=== PATIENT | female | born 1950 | race Caucasian/White ===

== ENCOUNTER → 2018-05-01 | Outpatient (CLI) | payer OTHER | END | disposition home or self-care (01) | LOC: LAB SHORT 14:00 → LAB 14:00 | DX: N39.0 Urinary tract infection, site not specified (principal) | CPT/HCPCS: 87077; 87086; 87186 ==

== ENCOUNTER → 2018-05-06 | Outpatient (CLI) | payer OTHER ==
[2018-05-06 10:49] LABS: Alanine Aminotransfer (ALT/SGP 25 U/L (12-78); Albumin, Blood 4.3 g/dL (3.4-5.0); Albumin/Globulin Ratio 1.4 (0.8-1.8); Alk Phos 71 U/L (50-136); Anion Gap 10 mmol/L (6-16); Aspartate Aminotrans (AST/SGOT 22 U/L (12-37); Bilirubin, Total 0.4 mg/dL (0.1-1.0); Blood Urea Nitrogen 11 mg/dL (8-24); Bun/Creatinine Ratio 13.6 (12.0-20.0); CO2, Blood 26 mmol/L (21-32); Calcium, Blood 8.9 mg/dL (8.5-10.1); Chloride, Blood 108 mmol/L (98-108); Creatinine, Blood 0.81 mg/dL (0.40-1.00); Glomerular Filtration Rate >60 (60-); Glucose, Blood 101 mg/dL (70-99); Potassium, Blood 3.7 mmol/L (3.5-5.5); Sodium, Blood 144 mmol/L (136-145); Total Protein, Blood 7.3 g/dL (6.4-8.2)
[2018-05-06 11:01] LABS: BASOPHILS ABSOLUTE AUTO 0.03 K/mm3 (0.00-0.23); BASOPHILS PERCENT AUTO 1 % (0-2); EOSINOPHILS ABSOLUTE AUTO 0.08 K/mm3 (0.00-0.68); EOSINOPHILS PERCENT AUTO 2 % (0-6); Hematocrit 40.3 % (33.0-51.0); Hemoglobin 13.2 g/dL (11.5-16.0); IMMATURE GRAN ABSOLUTE AUTO 0.01 K/mm3 (0.00-0.10); IMMATURE GRAN PERCENT AUTO 0 % (0-1); LYMPHOCYTES ABSOLUTE AUTO 1.32 K/mm3 (0.84-5.20); LYMPHOCYTES PERCENT AUTO 27 % (21-46); MONOCYTES ABSOLUTE AUTO 0.48 K/mm3 (0.16-1.47); MONOCYTES PERCENT AUTO 10 % (4-13); Mean Corpuscular HGB Conc 32.8 g/dL (31.5-36.5); Mean Corpuscular Volume 92 fL (80-100); Mean Platelet Volume 10.2 fL (9.1-12.4); NEUTROPHILS ABSOLUTE AUTO 2.95 K/mm3 (1.96-9.15); NEUTROPHILS PERCENT AUTO 61 % (41-73); Platelet Count 247 K/mm3 (150-400); RDW Coefficient Variation 13.3 % (11.7-14.2); RDW Standard Deviation 45.8 fL (35.1-46.3); White Blood Cell Count 4.87 K/mm3 (4.00-11.30)
[2018-05-06 11:05] LABS: Free Thyroxine 1.46 ng/dL (0.70-1.60)
== END ==
LOC: LAB 10:17 → LAB SHORT 10:17
DX: N39.0 Urinary tract infection, site not specified (principal); L40.4 Guttate psoriasis; M54.5 Low back pain; R53.83 Other fatigue; Z68.24 Body mass index [BMI] 24.0-24.9, adult
CPT/HCPCS: 80053; 84439; 84443; 85025; 87086

== ENCOUNTER → 2022-08-28 | Outpatient (CLI) | payer OTHER | LOC: LAB SHORT 08:25 → LAB 08:25 | DX: R30.0 Dysuria (principal) | CPT/HCPCS: 87077; 87086; 87186 ==

== ENCOUNTER 2023-12-10 07:25 | Day surgery (SDC) | payer OTHER ==
[~2023-12-10] VITALS: Ht 152.4 cm; Wt 51.9 kg
[2023-12-10] MEDS ORDERED: SYNTHROID137 MCG (07:44)
[2023-12-10] MEDS ORDERED: RIZATRIPTAN10 M3 PO (07:44)
[2023-12-10] MEDS ORDERED: PROBENECID-COL1 EACH PO (07:45)
--- NOTE | 2023-12-10 07:46 | NUR ---
12/10/23 0746 Renata العراقي AT 0741 PLEDGET AT [id number]
[2023-12-10 08:50] VITALS: BP 146/81
== END 2023-12-10 09:08 | disposition home or self-care (01) ==
LOC: ORSCSDS 07:25
PROVIDERS: Student in an Organized Health Care Education/Training Program
PROC: 08RJ3JZ Replacement of Right Lens with Synthetic Substitute, Percutaneous Approach (ICD-10-PCS; principal; 2023-12-10 08:30)
DX: H25.13 Age-related nuclear cataract, bilateral (principal); I25.2 Old myocardial infarction; F17.210 Nicotine dependence, cigarettes, uncomplicated; Z79.82 Long term (current) use of aspirin; Z79.899 Other long term (current) drug therapy
CPT/HCPCS: J2250; J3010; J7040; V2632

== ENCOUNTER 2023-12-24 10:16 | Day surgery (SDC) | payer OTHER ==
[~2023-12-24] VITALS: Ht 152.4 cm; Wt 52.2 kg
[~2023-12-24 10:16] MED LIST: Aspir 8181 MG; Balanced Salt Epinephrine Irrigation Solution 500 mL IR SCH; COLCHICINE PO; LEVOTHYROXINE137 M11 PO; Lidocaine HCl/Pf 1% 5 ML VIAL XX SCH; Moxifloxacin HCL 0.5 MG/0.1 ML 0.4MLSYR LEFTEYE SCH; NS 500 ML IV ONE; PHENYLEPHRINE\\TROPICAMIDE\\TETRACAINE OPHTHALMIC DILATING SOLN LEFTEYE PRN; PROBENECID-COL1 EACH PO; Povidone-Iodine 450 DROP/30 ML Solution LEFTEYE SCH; Povidone-Iodine 450 DROP/30 ML Solution ONE; RIZATRIPTAN10 M3 PO
[2023-12-24] MEDS ORDERED: GABA100 (10:39)
[2023-12-24] MEDS ORDERED: NS 500 ML IV ONE (10:42)
[2023-12-24] MEDS ORDERED: Midazolam HCl 1MG / ML 2ML Vial ONE (11:38)
[2023-12-24] MEDS ORDERED: Tetracaine HCl 0.5% Opth Soln 15 ml XX ONE (11:43)
[2023-12-24 12:27] VITALS: BP 146/82
== END 2023-12-24 12:22 | disposition home or self-care (01) ==
LOC: ORSCSDS 10:16
PROVIDERS: Student in an Organized Health Care Education/Training Program
PROC: 08RK3JZ Replacement of Left Lens with Synthetic Substitute, Percutaneous Approach (ICD-10-PCS; principal; 2023-12-24 11:30)
DX: H25.12 Age-related nuclear cataract, left eye (principal); E07.9 Disorder of thyroid, unspecified; M10.9 Gout, unspecified; F17.210 Nicotine dependence, cigarettes, uncomplicated
CPT/HCPCS: J2250; J7040; V2632

== ENCOUNTER 2025-03-08 06:39 | Emergency (ER) | payer OTHER ==
[~2025-03-08] VITALS: Ht 157.5 cm; Wt 72.6 kg
[~2025-03-08 06:39] MED LIST changes: -Balanced Salt Epinephrine Irrigation Solution 500 mL IR SCH; +GABA100; -Lidocaine HCl/Pf 1% 5 ML VIAL XX SCH; -Moxifloxacin HCL 0.5 MG/0.1 ML 0.4MLSYR LEFTEYE SCH; -NS 500 ML IV ONE; -PHENYLEPHRINE\\TROPICAMIDE\\TETRACAINE OPHTHALMIC DILATING SOLN LEFTEYE PRN; -Povidone-Iodine 450 DROP/30 ML Solution LEFTEYE SCH; -Povidone-Iodine 450 DROP/30 ML Solution ONE
[2025-03-08] MEDS ORDERED: LORazepam 2 MG/ML 1ML Injection IV ONE (06:50)
[2025-03-08] MEDS ORDERED: NS 1,000 ML IV SCH ×2 (06:50→08:45)
[2025-03-08 07:06] LABS: BASOPHILS ABSOLUTE AUTO 0.06 K/mm3 (0.00-0.23); BASOPHILS PERCENT AUTO 1 % (0-2); EOSINOPHILS ABSOLUTE AUTO 0.18 K/mm3 (0.00-0.68); EOSINOPHILS PERCENT AUTO 2 % (0-6); IMMATURE GRAN ABSOLUTE AUTO 0.03 K/mm3 (0.00-0.10); IMMATURE GRAN PERCENT AUTO 0 % (0-1); LYMPHOCYTES ABSOLUTE AUTO 2.92 K/mm3 (0.84-5.20); LYMPHOCYTES PERCENT AUTO 32 % (21-46); MONOCYTES ABSOLUTE AUTO 0.63 K/mm3 (0.16-1.47); MONOCYTES PERCENT AUTO 7 % (4-13); Mean Corpuscular HGB 32.3 pg (26.0-34.0); Mean Corpuscular HGB Conc 34.1 g/dL (31.5-36.5); Mean Corpuscular Volume 95 fL (80-100); Mean Platelet Volume 9.2 fL (9.1-12.4); NEUTROPHILS ABSOLUTE AUTO 5.42 K/mm3 (1.96-9.15); NEUTROPHILS PERCENT AUTO 59 % (41-73); Platelet Count 266 K/mm3 (150-400); RDW Coefficient Variation 14.7 % (11.7-14.2); Red Blood Cell Count 4.33 M/mm3 (3.80-5.20); White Blood Cell Count 9.24 K/mm3 (4.00-11.30)
[2025-03-08] MEDS ORDERED: Metoclopramide HCl 5MG / ML 2ML Vial IV ONE (07:15)
[2025-03-08 07:26] LABS: Alanine Aminotransfer (ALT/SGP 26 U/L (12-78); Albumin, Blood 4.4 g/dL (3.4-5.0); Albumin/Globulin Ratio 1.5 (0.8-1.8); Alk Phos 98 U/L (50-136); Anion Gap 14 mmol/L (3-11); Aspartate Aminotrans (AST/SGOT 23 U/L (12-37); Bilirubin, Total 0.6 mg/dL (0.1-1.0); Blood Urea Nitrogen 12 mg/dL (8-24); Bun/Creatinine Ratio 14.4 (12.0-20.0); CO2, Blood 22 mmol/L (21-32); Calcium, Blood 9.3 mg/dL (8.5-10.1); Chloride, Blood 107 mmol/L (98-108); Creatinine, Blood 0.83 mg/dL (0.40-1.00); Glomerular Filtration Rate 74 (60-); Glucose, Blood 212 mg/dL (70-99); Potassium, Blood 2.9 mmol/L (3.5-5.5); Sodium, Blood 140 mmol/L (136-145); Total Protein, Blood 7.4 g/dL (6.4-8.2)
[2025-03-08 07:27] LABS: Ethanol (Alcohol), Blood, Med <3 mg/dL
[2025-03-08 07:35] LABS: Free Thyroxine 1.27 ng/dL (0.70-1.60)
[2025-03-08 07:36] LABS: Thyroid Stimulating Hormone 10.9 uIU/mL (0.360-4.800)
[2025-03-08] MEDS ORDERED: Mag Sulfate 1 GM/D5% 100ML 100 ML IV ONE (07:55)
[2025-03-08] MEDS ORDERED: Potassium Chl 20MEQ/Water100ML 100 ML IV ONE (07:55)
[2025-03-08 08:17] LABS: CORONAVIRUS COVID-19 AG Negative (NEGATIVE); INFLUENZA A AG Negative (NEGATIVE); INFLUENZA B AG Negative (NEGATIVE)
[2025-03-08 09:54] LABS: U Amphetamine Screen Not Detected; U Barbituate Screen Not Detected; U Benzodiazapine Screen Not Detected; U Cocaine Screen Not Detected; U Methadone Screen Not Detected; U Methamphetamine Screen Not Detected; U Opiates Screen Not Detected
[2025-03-08 09:55] LABS: U Buprenorphine Screen Not Detected; U Cannabinoids Screen DETECTED; U Oxycodone Screen Not Detected; U Phencyclidine Screen Not Detected
[2025-03-08] MEDS ORDERED: LOPE2C PO (10:56)
[2025-03-08] MEDS ORDERED: POTA10T PO (10:56)
[2025-03-08] MEDS ORDERED: ONDA4ODT MM (10:56)
[2025-03-08 11:00] VITALS: BP 157/83
== END 2025-03-08 11:27 | disposition home or self-care (01) ==
LOC: ER 06:39
PROVIDERS: Emergency Medicine
DX: R07.89 Other chest pain (principal); E87.6 Hypokalemia; R11.2 Nausea with vomiting, unspecified; R19.7 Diarrhea, unspecified; R61 Generalized hyperhidrosis; E03.9 Hypothyroidism, unspecified; Z88.0 Allergy status to penicillin; Z88.2 Allergy status to sulfonamides; Z88.6 Allergy status to analgesic agent; Z88.5 Allergy status to narcotic agent; Z88.1 Allergy status to other antibiotic agents; Z79.890 Hormone replacement therapy; Z79.899 Other long term (current) drug therapy
CPT/HCPCS: 80053; 80320; 83690; 84439; 84443; 84484; 85025; 87428-QW; 93005; 93010; 96361; 96365; 96366; 96367; 96375; 99284-25; J2060; J2765; J3475; J3480; J7030

== ENCOUNTER 2025-05-20 21:44 | Emergency (ER) | payer OTHER ==
[~2025-05-20] VITALS: Ht 157.5 cm; Wt 55.3 kg
[~2025-05-20 21:44] MED LIST changes: +CEFDINIR300 M4 PO; +HYDROCODONE-AC1 EA19 PO; +LOPE2C PO; +Norco 5-325 Ta1 EACH PO; +ONDA4ODT MM; +POTA10T PO; +PRED5; +RIZATRIPTAN10 MG SL; +VISBIOME 112.51 EACH PO
[2025-05-20 22:44] VITALS: BP 184/81
[2025-05-20 23:10] LABS: BASOPHILS ABSOLUTE AUTO 0.07 K/mm3 (0.00-0.23); BASOPHILS PERCENT AUTO 1 % (0-2); EOSINOPHILS ABSOLUTE AUTO 0.13 K/mm3 (0.00-0.68); EOSINOPHILS PERCENT AUTO 2 % (0-6); Hematocrit 28.3 % (33.0-51.0); Hemoglobin 9.2 g/dL (11.5-16.0); IMMATURE GRAN ABSOLUTE AUTO 0.02 K/mm3 (0.00-0.10); IMMATURE GRAN PERCENT AUTO 0 % (0-1); LYMPHOCYTES ABSOLUTE AUTO 1.63 K/mm3 (0.84-5.20); LYMPHOCYTES PERCENT AUTO 27 % (21-46); MONOCYTES ABSOLUTE AUTO 0.81 K/mm3 (0.16-1.47); MONOCYTES PERCENT AUTO 14 % (4-13); Mean Corpuscular HGB Conc 32.5 g/dL (31.5-36.5); Mean Corpuscular Volume 97 fL (80-100); NEUTROPHILS ABSOLUTE AUTO 3.32 K/mm3 (1.96-9.15); NEUTROPHILS PERCENT AUTO 56 % (41-73); NRBC ABSOLUTE 0.00 K/mm3 (0.00-0.02); NRBC Auto 0.0 /100 WBC (0.0-0.2); Platelet Count 198 K/mm3 (150-400); RDW Coefficient Variation 12.7 % (11.7-14.2); RDW Standard Deviation 44.1 fL (35.1-46.3)
[2025-05-20 23:30] LABS: Alanine Aminotransfer (ALT/SGP 30.0 U/L (12-78); Albumin, Blood 3.6 g/dL (3.4-5.0); Albumin/Globulin Ratio 1.2 (0.8-1.8); Anion Gap 5.0 mmol/L (3-11); Aspartate Aminotrans (AST/SGOT 17.0 U/L (12-37); Bilirubin, Total 0.2 mg/dL (0.1-1.0); Blood Urea Nitrogen 20.0 mg/dL (8-24); CO2, Blood 29.0 mmol/L (21-32); Calcium, Blood 9.2 mg/dL (8.5-10.1); Chloride, Blood 108.0 mmol/L (98-108); Creatinine, Blood 0.92 mg/dL (0.40-1.00); Globulin, Blood 2.9 g/dL (2.2-4.0); Glucose, Blood 127.0 mg/dL (70-99); Potassium, Blood 3.4 mmol/L (3.5-5.5); Sodium, Blood 139.0 mmol/L (136-145); Total Protein, Blood 6.5 g/dL (6.4-8.2)
[2025-05-20] MEDS ORDERED: CLIN150 PO (23:47)
== END 2025-05-20 23:50 | disposition home or self-care (01) ==
LOC: ER 21:44
PROVIDERS: Physician Assistant
DX: L03.011 Cellulitis of right finger (principal); Z88.0 Allergy status to penicillin; Z88.2 Allergy status to sulfonamides; Z79.899 Other long term (current) drug therapy; Z79.890 Hormone replacement therapy
CPT/HCPCS: 73130; 80053; 85025; 99283-25; A9270

== ENCOUNTER 2025-05-28 15:32 | Day surgery (SDC) | payer OTHER ==
[~2025-05-28 15:32] MED LIST changes: +CLIN150 PO
[2025-05-28 16:10] VITALS: BP 149/97
[2025-05-28 17:24] LABS: BASOPHILS ABSOLUTE AUTO 0.03 K/mm3 (0.00-0.23); BASOPHILS PERCENT AUTO 1 % (0-2); EOSINOPHILS ABSOLUTE AUTO 0.09 K/mm3 (0.00-0.68); EOSINOPHILS PERCENT AUTO 2 % (0-6); Hematocrit 29.4 % (33.0-51.0); Hemoglobin 9.9 g/dL (11.5-16.0); IMMATURE GRAN ABSOLUTE AUTO 0.00 K/mm3 (0.00-0.10); IMMATURE GRAN PERCENT AUTO 0 % (0-1); LYMPHOCYTES ABSOLUTE AUTO 1.60 K/mm3 (0.84-5.20); LYMPHOCYTES PERCENT AUTO 40 % (21-46); MONOCYTES ABSOLUTE AUTO 0.49 K/mm3 (0.16-1.47); MONOCYTES PERCENT AUTO 12 % (4-13); Mean Corpuscular HGB Conc 33.7 g/dL (31.5-36.5); Mean Corpuscular Volume 92 fL (80-100); NEUTROPHILS ABSOLUTE AUTO 1.79 K/mm3 (1.96-9.15); NEUTROPHILS PERCENT AUTO 45 % (41-73); NRBC ABSOLUTE 0.00 K/mm3 (0.00-0.02); NRBC Auto 0.0 /100 WBC (0.0-0.2); Platelet Count 306 K/mm3 (150-400); RDW Coefficient Variation 13.2 % (11.7-14.2); RDW Standard Deviation 43.8 fL (35.1-46.3)
[2025-05-28] MEDS ORDERED: DAPTOMYCIN500 M3 IV (17:51)
[2025-05-28 17:54] LABS: C-REACTIVE PROTEIN, EXT RANGE <0.290 mg/dL (0.000-0.300)
[2025-05-28 17:56] LABS: Alanine Aminotransfer (ALT/SGP 25 U/L (12-78); Albumin, Blood 3.6 g/dL (3.4-5.0); Albumin/Globulin Ratio 1.3 (0.8-1.8); Anion Gap 10 mmol/L (3-11); Aspartate Aminotrans (AST/SGOT 18 U/L (12-37); Bilirubin, Total 0.5 mg/dL (0.1-1.0); Blood Urea Nitrogen 15 mg/dL (8-24); CO2, Blood 25 mmol/L (21-32); Calcium, Blood 8.9 mg/dL (8.5-10.1); Chloride, Blood 107 mmol/L (98-108); Creatinine, Blood 1.04 mg/dL (0.40-1.00); Globulin, Blood 2.8 g/dL (2.2-4.0); Glucose, Blood 102 mg/dL (70-99); Potassium, Blood 3.5 mmol/L (3.5-5.5); Sodium, Blood 138 mmol/L (136-145); Total Protein, Blood 6.4 g/dL (6.4-8.2)
--- NOTE | 2025-05-28 18:03 | NUR ---
Lab results from today's draw faxed to Dr. Spicer's office.
== END 2025-05-28 17:50 | disposition home or self-care (01) ==
LOC: ATC 15:32
PROVIDERS: Internal Medicine Infectious Disease
DX: M00.041 Staphylococcal arthritis, right hand (principal); B95.62 Methicillin resistant Staphylococcus aureus infection as the cause of diseases classified elsewhere; D62 Acute posthemorrhagic anemia; Z88.0 Allergy status to penicillin; Z88.1 Allergy status to other antibiotic agents; Z88.2 Allergy status to sulfonamides
CPT/HCPCS: 36415; 36569; 80053; 82550; 85025; 85045; 85060; 86140; 96365; C1751; J0878

== ENCOUNTER 2025-05-29 01:21 | Day surgery (SDC) | payer OTHER ==
[~2025-05-29 01:21] MED LIST changes: +DAPTOMYCIN500 M3 IV
[2025-05-29 16:09] VITALS: BP 108/65
== END 2025-05-29 16:29 | disposition home or self-care (01) ==
LOC: ATC 01:21
DX: M00.041 Staphylococcal arthritis, right hand (principal); B95.62 Methicillin resistant Staphylococcus aureus infection as the cause of diseases classified elsewhere; M10.9 Gout, unspecified; Z79.890 Hormone replacement therapy; Z79.899 Other long term (current) drug therapy; Z88.0 Allergy status to penicillin; Z88.2 Allergy status to sulfonamides
CPT/HCPCS: 96365; J0878

== ENCOUNTER 2025-05-30 00:51 | Day surgery (SDC) | payer OTHER ==
[2025-05-30 13:50] VITALS: BP 144/78
== END 2025-05-30 14:15 | disposition home or self-care (01) ==
LOC: ATC 00:51
DX: M00.041 Staphylococcal arthritis, right hand (principal); B95.62 Methicillin resistant Staphylococcus aureus infection as the cause of diseases classified elsewhere; M10.9 Gout, unspecified; Z79.890 Hormone replacement therapy; Z79.899 Other long term (current) drug therapy; Z88.0 Allergy status to penicillin; Z88.2 Allergy status to sulfonamides
CPT/HCPCS: 96365; J0878

== ENCOUNTER 2025-05-31 00:44 | Day surgery (SDC) | payer OTHER ==
[2025-05-31 14:17] VITALS: BP 156/92
== END 2025-05-31 14:45 | disposition home or self-care (01) ==
LOC: ATC 00:44
DX: M00.041 Staphylococcal arthritis, right hand (principal); B95.62 Methicillin resistant Staphylococcus aureus infection as the cause of diseases classified elsewhere; M10.9 Gout, unspecified; Z79.890 Hormone replacement therapy; Z79.899 Other long term (current) drug therapy
CPT/HCPCS: 96365; J0878

== ENCOUNTER 2025-06-01 01:03 | Day surgery (SDC) | payer OTHER ==
[2025-06-01 14:28] VITALS: BP 118/68
== END 2025-06-01 14:47 | disposition home or self-care (01) ==
LOC: ATC 01:03
DX: M00.041 Staphylococcal arthritis, right hand (principal); B95.62 Methicillin resistant Staphylococcus aureus infection as the cause of diseases classified elsewhere; M10.9 Gout, unspecified; Z79.890 Hormone replacement therapy; Z79.899 Other long term (current) drug therapy; Z88.0 Allergy status to penicillin; Z88.2 Allergy status to sulfonamides
CPT/HCPCS: 96365; J0878

== ENCOUNTER 2025-06-02 01:22 | Day surgery (SDC) | payer OTHER ==
[2025-06-02 14:27] VITALS: BP 138/70
== END 2025-06-02 14:47 | disposition home or self-care (01) ==
LOC: ATC 01:22
DX: M00.041 Staphylococcal arthritis, right hand (principal); B95.62 Methicillin resistant Staphylococcus aureus infection as the cause of diseases classified elsewhere; M10.9 Gout, unspecified; Z79.890 Hormone replacement therapy; Z79.899 Other long term (current) drug therapy; Z88.0 Allergy status to penicillin; Z88.2 Allergy status to sulfonamides
CPT/HCPCS: 96365; J0878

== ENCOUNTER 2025-06-03 03:00 | Day surgery (SDC) | payer OTHER ==
[2025-06-03 14:22] VITALS: BP 104/55
== END 2025-06-03 14:55 | disposition home or self-care (01) ==
LOC: ATC 03:00
DX: M00.041 Staphylococcal arthritis, right hand (principal); B95.62 Methicillin resistant Staphylococcus aureus infection as the cause of diseases classified elsewhere; M10.9 Gout, unspecified; Z79.890 Hormone replacement therapy; Z79.899 Other long term (current) drug therapy; Z88.0 Allergy status to penicillin; Z88.2 Allergy status to sulfonamides
CPT/HCPCS: 96365; J0878

== ENCOUNTER 2025-06-04 03:00 | Day surgery (SDC) | payer OTHER ==
[2025-06-04 14:31] VITALS: BP 121/104
[2025-06-04 14:54] LABS: Hematocrit 31.4 % (33.0-51.0); Hemoglobin 10.3 g/dL (11.5-16.0); Mean Corpuscular HGB Conc 32.8 g/dL (31.5-36.5); Mean Corpuscular Volume 95 fL (80-100); NRBC ABSOLUTE 0.00 K/mm3 (0.00-0.02); NRBC Auto 0.0 /100 WBC (0.0-0.2); Platelet Count 230 K/mm3 (150-400); RDW Coefficient Variation 14.0 % (11.7-14.2); RDW Standard Deviation 48.7 fL (35.1-46.3)
[2025-06-04 15:17] LABS: BASOPHILS ABSOLUTE MAN 0.12 K/mm3 (0.00-0.23); BASOPHILS PERCENT MAN 3 % (0-2); EOSINOPHILS ABSOLUTE MAN 0.16 K/mm3 (0.00-0.68); EOSINOPHILS PERCENT MAN 4 % (0-6); LYMPHOCYTES ABSOLUTE MAN 1.43 K/mm3 (0.84-5.20); LYMPHOCYTES PERCENT MAN 35 % (21-46); MONOCYTES ABSOLUTE MAN 0.32 K/mm3 (0.16-1.47); MONOCYTES PERCENT MAN 8 % (4-13); NEUTROPHILS ABSOLUTE MAN 2.05 K/mm3 (1.96-9.15); SEG NEUTROPHILS PERCENT MAN 50 % (41-73)
[2025-06-04 15:52] LABS: C-REACTIVE PROTEIN, EXT RANGE <0.290 mg/dL (0.000-0.300)
[2025-06-04 15:59] LABS: Alanine Aminotransfer (ALT/SGP 21 U/L (12-78); Albumin, Blood 3.5 g/dL (3.4-5.0); Albumin/Globulin Ratio 1.1 (0.8-1.8); Anion Gap 8 mmol/L (3-11); Aspartate Aminotrans (AST/SGOT 18 U/L (12-37); Bilirubin, Total 0.3 mg/dL (0.1-1.0); Blood Urea Nitrogen 14 mg/dL (8-24); CO2, Blood 26 mmol/L (21-32); Calcium, Blood 8.8 mg/dL (8.5-10.1); Chloride, Blood 108 mmol/L (98-108); Creatinine, Blood 0.88 mg/dL (0.40-1.00); Globulin, Blood 3.3 g/dL (2.2-4.0); Glucose, Blood 110 mg/dL (70-99); Potassium, Blood 3.6 mmol/L (3.5-5.5); Sodium, Blood 138 mmol/L (136-145); Total Protein, Blood 6.8 g/dL (6.4-8.2)
== END 2025-06-04 14:45 | disposition home or self-care (01) ==
LOC: ATC 03:00
PROVIDERS: Internal Medicine Infectious Disease
DX: A49.02 Methicillin resistant Staphylococcus aureus infection, unspecified site (principal); M00.9 Pyogenic arthritis, unspecified
CPT/HCPCS: 80053; 82550; 85025; 86140; 96365; J0878

== ENCOUNTER 2025-06-05 01:03 | Day surgery (SDC) | payer OTHER ==
[2025-06-05 14:25] VITALS: BP 107/72
== END 2025-06-05 14:52 | disposition home or self-care (01) ==
LOC: ATC 01:03
DX: M00.041 Staphylococcal arthritis, right hand (principal); B95.62 Methicillin resistant Staphylococcus aureus infection as the cause of diseases classified elsewhere; M10.9 Gout, unspecified; M06.9 Rheumatoid arthritis, unspecified; Z79.890 Hormone replacement therapy; Z79.899 Other long term (current) drug therapy; Z88.0 Allergy status to penicillin; Z88.1 Allergy status to other antibiotic agents; Z88.2 Allergy status to sulfonamides
CPT/HCPCS: 96365; J0878

== ENCOUNTER 2025-06-06 01:05 | Day surgery (SDC) | payer OTHER ==
[2025-06-06 13:35] VITALS: BP 117/70
== END 2025-06-06 14:32 | disposition home or self-care (01) ==
LOC: ATC 01:05
DX: M00.041 Staphylococcal arthritis, right hand (principal); B95.62 Methicillin resistant Staphylococcus aureus infection as the cause of diseases classified elsewhere; M10.9 Gout, unspecified; M06.9 Rheumatoid arthritis, unspecified; Z79.890 Hormone replacement therapy; Z79.899 Other long term (current) drug therapy; Z88.0 Allergy status to penicillin; Z88.1 Allergy status to other antibiotic agents; Z88.2 Allergy status to sulfonamides
CPT/HCPCS: 96365; J0878

== ENCOUNTER 2025-06-07 00:16 | Day surgery (SDC) | payer OTHER ==
[2025-06-07 14:42] VITALS: BP 120/73
== END 2025-06-07 15:08 | disposition home or self-care (01) ==
LOC: ATC 00:16
DX: M00.041 Staphylococcal arthritis, right hand (principal); B95.62 Methicillin resistant Staphylococcus aureus infection as the cause of diseases classified elsewhere
CPT/HCPCS: 96365; J0878

== ENCOUNTER 2025-06-08 01:28 | Day surgery (SDC) | payer OTHER ==
[2025-06-08 14:41] VITALS: BP 141/71
== END 2025-06-08 15:03 | disposition home or self-care (01) ==
LOC: ATC 01:28
DX: M00.041 Staphylococcal arthritis, right hand (principal); B95.62 Methicillin resistant Staphylococcus aureus infection as the cause of diseases classified elsewhere
CPT/HCPCS: 96365; J0878

== ENCOUNTER 2025-06-09 04:12 | Day surgery (SDC) | payer OTHER ==
[2025-06-09 14:36] VITALS: BP 146/83
== END 2025-06-09 14:58 | disposition home or self-care (01) ==
LOC: ATC 04:12
DX: M00.041 Staphylococcal arthritis, right hand (principal); B95.62 Methicillin resistant Staphylococcus aureus infection as the cause of diseases classified elsewhere; Z79.899 Other long term (current) drug therapy; Z88.0 Allergy status to penicillin; Z88.2 Allergy status to sulfonamides
CPT/HCPCS: 96365; J0878

== ENCOUNTER 2025-06-10 04:21 | Day surgery (SDC) | payer OTHER ==
[2025-06-10 14:31] VITALS: BP 122/75
== END 2025-06-10 14:55 | disposition home or self-care (01) ==
LOC: ATC 04:21
DX: A49.02 Methicillin resistant Staphylococcus aureus infection, unspecified site (principal); M00.9 Pyogenic arthritis, unspecified
CPT/HCPCS: 96365; J0878

== ENCOUNTER 2025-06-11 03:47 | Day surgery (SDC) | payer OTHER ==
[2025-06-11 14:57] LABS: BASOPHILS ABSOLUTE AUTO 0.06 K/mm3 (0.00-0.23); BASOPHILS PERCENT AUTO 1 % (0-2); EOSINOPHILS ABSOLUTE AUTO 0.10 K/mm3 (0.00-0.68); EOSINOPHILS PERCENT AUTO 2 % (0-6); Hematocrit 33.1 % (33.0-51.0); Hemoglobin 10.8 g/dL (11.5-16.0); IMMATURE GRAN ABSOLUTE AUTO 0.00 K/mm3 (0.00-0.10); IMMATURE GRAN PERCENT AUTO 0 % (0-1); LYMPHOCYTES ABSOLUTE AUTO 1.32 K/mm3 (0.84-5.20); LYMPHOCYTES PERCENT AUTO 29 % (21-46); MONOCYTES ABSOLUTE AUTO 0.52 K/mm3 (0.16-1.47); MONOCYTES PERCENT AUTO 12 % (4-13); Mean Corpuscular HGB Conc 32.6 g/dL (31.5-36.5); Mean Corpuscular Volume 94 fL (80-100); NEUTROPHILS ABSOLUTE AUTO 2.52 K/mm3 (1.96-9.15); NEUTROPHILS PERCENT AUTO 56 % (41-73); NRBC ABSOLUTE 0.00 K/mm3 (0.00-0.02); NRBC Auto 0.0 /100 WBC (0.0-0.2); Platelet Count 249 K/mm3 (150-400); RDW Coefficient Variation 13.9 % (11.7-14.2); RDW Standard Deviation 47.8 fL (35.1-46.3)
[2025-06-11 15:24] LABS: Alanine Aminotransfer (ALT/SGP 22 U/L (12-78); Albumin, Blood 3.9 g/dL (3.4-5.0); Albumin/Globulin Ratio 1.2 (0.8-1.8); Anion Gap 9 mmol/L (3-11); Aspartate Aminotrans (AST/SGOT 19 U/L (12-37); Bilirubin, Total 0.3 mg/dL (0.1-1.0); Blood Urea Nitrogen 12 mg/dL (8-24); C-REACTIVE PROTEIN, EXT RANGE <0.290 mg/dL (0.000-0.300); CO2, Blood 24 mmol/L (21-32); Calcium, Blood 8.8 mg/dL (8.5-10.1); Chloride, Blood 109 mmol/L (98-108); Creatinine, Blood 0.88 mg/dL (0.40-1.00); Globulin, Blood 3.2 g/dL (2.2-4.0); Glucose, Blood 95 mg/dL (70-99); Potassium, Blood 3.4 mmol/L (3.5-5.5); Sodium, Blood 139 mmol/L (136-145); Total Protein, Blood 7.1 g/dL (6.4-8.2)
== END 2025-06-11 14:52 | disposition home or self-care (01) ==
LOC: ATC 03:47
PROVIDERS: Internal Medicine Infectious Disease
DX: M00.9 Pyogenic arthritis, unspecified (principal); A49.02 Methicillin resistant Staphylococcus aureus infection, unspecified site
CPT/HCPCS: 80053; 82550; 85025; 86140; 96365; J0878

== ENCOUNTER 2025-06-12 01:17 | Day surgery (SDC) | payer OTHER ==
[2025-06-12 14:24] VITALS: BP 123/74
== END 2025-06-12 14:46 | disposition home or self-care (01) ==
LOC: ATC 01:17
DX: M00.9 Pyogenic arthritis, unspecified (principal); A49.02 Methicillin resistant Staphylococcus aureus infection, unspecified site; Z88.0 Allergy status to penicillin; Z88.2 Allergy status to sulfonamides
CPT/HCPCS: 96365; J0878

== ENCOUNTER 2025-06-13 03:16 | Day surgery (SDC) | payer OTHER ==
[2025-06-13 14:50] VITALS: BP 125/72
== END 2025-06-13 14:56 | disposition home or self-care (01) ==
LOC: ATC 03:16
DX: M00.9 Pyogenic arthritis, unspecified (principal); A49.02 Methicillin resistant Staphylococcus aureus infection, unspecified site
CPT/HCPCS: 96365; J0878

== ENCOUNTER 2025-06-14 00:23 | Day surgery (SDC) | payer OTHER ==
[2025-06-14 14:27] VITALS: BP 157/105
== END 2025-06-14 14:50 | disposition home or self-care (01) ==
LOC: ATC 00:23
DX: M00.041 Staphylococcal arthritis, right hand (principal); B95.62 Methicillin resistant Staphylococcus aureus infection as the cause of diseases classified elsewhere; M10.9 Gout, unspecified; Z79.890 Hormone replacement therapy; Z79.899 Other long term (current) drug therapy; Z88.0 Allergy status to penicillin; Z88.2 Allergy status to sulfonamides
CPT/HCPCS: 96365; J0878

== ENCOUNTER 2025-06-15 14:06 | Day surgery (SDC) | payer OTHER ==
[2025-06-15 14:16] VITALS: BP 143/87
== END 2025-06-15 14:38 | disposition home or self-care (01) ==
LOC: ATC 14:06
DX: M00.9 Pyogenic arthritis, unspecified (principal); A49.02 Methicillin resistant Staphylococcus aureus infection, unspecified site
CPT/HCPCS: 96365; J0878

== ENCOUNTER 2025-06-16 08:14 | Day surgery (SDC) | payer OTHER ==
[2025-06-16 14:53] VITALS: BP 142/70
== END 2025-06-16 15:00 | disposition home or self-care (01) ==
LOC: ATC 08:14
DX: M00.9 Pyogenic arthritis, unspecified (principal); A49.02 Methicillin resistant Staphylococcus aureus infection, unspecified site
CPT/HCPCS: 96365; J0878

== ENCOUNTER 2025-06-17 14:08 | Day surgery (SDC) | payer OTHER ==
[2025-06-17 14:29] VITALS: BP 138/68
== END 2025-06-17 14:52 | disposition home or self-care (01) ==
LOC: ATC 14:08
DX: M00.041 Staphylococcal arthritis, right hand (principal); B95.62 Methicillin resistant Staphylococcus aureus infection as the cause of diseases classified elsewhere; M10.9 Gout, unspecified; M06.9 Rheumatoid arthritis, unspecified; Z79.890 Hormone replacement therapy; Z79.899 Other long term (current) drug therapy
CPT/HCPCS: 96365; J0878

== ENCOUNTER 2025-06-18 01:14 | Day surgery (SDC) | payer OTHER ==
[2025-06-18 14:39] VITALS: BP 136/75
[2025-06-18 15:12] LABS: BASOPHILS ABSOLUTE AUTO 0.05 K/mm3 (0.00-0.23); BASOPHILS PERCENT AUTO 1 % (0-2); EOSINOPHILS ABSOLUTE AUTO 0.29 K/mm3 (0.00-0.68); EOSINOPHILS PERCENT AUTO 5 % (0-6); Hematocrit 34.6 % (33.0-51.0); Hemoglobin 11.2 g/dL (11.5-16.0); IMMATURE GRAN ABSOLUTE AUTO 0.01 K/mm3 (0.00-0.10); IMMATURE GRAN PERCENT AUTO 0 % (0-1); LYMPHOCYTES ABSOLUTE AUTO 1.42 K/mm3 (0.84-5.20); LYMPHOCYTES PERCENT AUTO 27 % (21-46); MONOCYTES ABSOLUTE AUTO 0.55 K/mm3 (0.16-1.47); MONOCYTES PERCENT AUTO 10 % (4-13); Mean Corpuscular HGB Conc 32.4 g/dL (31.5-36.5); Mean Corpuscular Volume 93 fL (80-100); NEUTROPHILS ABSOLUTE AUTO 3.04 K/mm3 (1.96-9.15); NEUTROPHILS PERCENT AUTO 57 % (41-73); NRBC ABSOLUTE 0.00 K/mm3 (0.00-0.02); NRBC Auto 0.0 /100 WBC (0.0-0.2); Platelet Count 228 K/mm3 (150-400); RDW Coefficient Variation 13.5 % (11.7-14.2); RDW Standard Deviation 45.8 fL (35.1-46.3)
[2025-06-18 15:47] LABS: C-REACTIVE PROTEIN, EXT RANGE 0.461 mg/dL (0.000-0.300)
[2025-06-18 15:55] LABS: Alanine Aminotransfer (ALT/SGP 19.0 U/L (12-78); Albumin, Blood 3.7 g/dL (3.4-5.0); Albumin/Globulin Ratio 1.2 (0.8-1.8); Anion Gap 2.0 mmol/L (3-11); Aspartate Aminotrans (AST/SGOT 12.0 U/L (12-37); Bilirubin, Total 0.3 mg/dL (0.1-1.0); Blood Urea Nitrogen 19.0 mg/dL (8-24); CO2, Blood 26.0 mmol/L (21-32); Calcium, Blood 9.2 mg/dL (8.5-10.1); Chloride, Blood 110.0 mmol/L (98-108); Creatinine, Blood 0.86 mg/dL (0.40-1.00); Globulin, Blood 3.1 g/dL (2.2-4.0); Glucose, Blood 99.0 mg/dL (70-99); Potassium, Blood 3.5 mmol/L (3.5-5.5); Sodium, Blood 134.0 mmol/L (136-145); Total Protein, Blood 6.8 g/dL (6.4-8.2)
== END 2025-06-18 14:58 | disposition home or self-care (01) ==
LOC: ATC 01:14
PROVIDERS: Internal Medicine Infectious Disease
DX: M00.9 Pyogenic arthritis, unspecified (principal); A49.02 Methicillin resistant Staphylococcus aureus infection, unspecified site
CPT/HCPCS: 80053; 82550; 85025; 86140; 96365; J0878

== ENCOUNTER 2025-06-19 10:14 | Day surgery (SDC) | payer OTHER ==
[2025-06-19 14:32] VITALS: BP 131/73
== END 2025-06-19 14:53 | disposition home or self-care (01) ==
LOC: ATC 10:14
DX: M00.9 Pyogenic arthritis, unspecified (principal); A49.02 Methicillin resistant Staphylococcus aureus infection, unspecified site; Z88.0 Allergy status to penicillin; Z88.2 Allergy status to sulfonamides; Z88.1 Allergy status to other antibiotic agents
CPT/HCPCS: J0878

== ENCOUNTER 2025-06-20 07:03 | Day surgery (SDC) | payer OTHER ==
[2025-06-20 14:30] VITALS: BP 122/80
== END 2025-06-20 14:50 | disposition home or self-care (01) ==
LOC: ATC 07:03
DX: M00.9 Pyogenic arthritis, unspecified (principal); A49.02 Methicillin resistant Staphylococcus aureus infection, unspecified site; Z88.0 Allergy status to penicillin; Z88.2 Allergy status to sulfonamides; Z88.8 Allergy status to other drugs, medicaments and biological substances
CPT/HCPCS: J0878

== ENCOUNTER 2025-06-21 00:21 | Day surgery (SDC) | payer OTHER ==
[2025-06-21 14:36] VITALS: BP 131/80
== END 2025-06-21 14:55 | disposition home or self-care (01) ==
LOC: ATC 00:21
DX: M00.9 Pyogenic arthritis, unspecified (principal); A49.02 Methicillin resistant Staphylococcus aureus infection, unspecified site; Z88.0 Allergy status to penicillin; Z88.1 Allergy status to other antibiotic agents; Z88.2 Allergy status to sulfonamides
CPT/HCPCS: 96365; J0878

== ENCOUNTER 2025-06-26 00:36 | Day surgery (SDC) | payer OTHER ==
[2025-06-26 14:28] VITALS: BP 147/83
== END 2025-06-26 14:47 | disposition home or self-care (01) ==
LOC: ATC 00:36
DX: M00.9 Pyogenic arthritis, unspecified (principal); A49.02 Methicillin resistant Staphylococcus aureus infection, unspecified site
CPT/HCPCS: 96365; J0878

== ENCOUNTER 2025-06-28 01:35 | Day surgery (SDC) | payer OTHER ==
[2025-06-28 14:41] VITALS: BP 128/83
== END 2025-06-28 15:00 | disposition home or self-care (01) ==
LOC: ATC 01:35
DX: M00.9 Pyogenic arthritis, unspecified (principal); A49.02 Methicillin resistant Staphylococcus aureus infection, unspecified site
CPT/HCPCS: 96365

== ENCOUNTER 2025-06-29 01:16 | Day surgery (SDC) | payer OTHER ==
[2025-06-29 15:05] VITALS: BP 134/76
== END 2025-06-29 15:29 | disposition home or self-care (01) ==
LOC: ATC 01:16
DX: M00.041 Staphylococcal arthritis, right hand (principal); B95.62 Methicillin resistant Staphylococcus aureus infection as the cause of diseases classified elsewhere; Z79.2 Long term (current) use of antibiotics; Z88.0 Allergy status to penicillin; Z88.1 Allergy status to other antibiotic agents; Z88.2 Allergy status to sulfonamides
CPT/HCPCS: 96365; J0878

== ENCOUNTER 2025-06-30 05:00 | Day surgery (SDC) | payer OTHER ==
[2025-06-30 14:32] VITALS: BP 107/73
== END 2025-06-30 14:50 | disposition home or self-care (01) ==
LOC: ATC 05:00
DX: M00.041 Staphylococcal arthritis, right hand (principal); B95.62 Methicillin resistant Staphylococcus aureus infection as the cause of diseases classified elsewhere; Z79.2 Long term (current) use of antibiotics; Z88.0 Allergy status to penicillin; Z88.1 Allergy status to other antibiotic agents; Z88.2 Allergy status to sulfonamides
CPT/HCPCS: 96365; J0878

== ENCOUNTER 2025-07-01 02:30 | Day surgery (SDC) | payer OTHER ==
[2025-07-01 14:34] VITALS: BP 106/65
== END 2025-07-01 14:57 | disposition home or self-care (01) ==
LOC: ATC 02:30
DX: M00.041 Staphylococcal arthritis, right hand (principal); B95.62 Methicillin resistant Staphylococcus aureus infection as the cause of diseases classified elsewhere; Z88.0 Allergy status to penicillin; Z88.1 Allergy status to other antibiotic agents; Z88.2 Allergy status to sulfonamides
CPT/HCPCS: 96365; J0878

== ENCOUNTER 2025-07-02 01:34 | Day surgery (SDC) | payer OTHER ==
[2025-07-02 14:10] VITALS: BP 113/80
[2025-07-02 14:46] LABS: BASOPHILS ABSOLUTE AUTO 0.05 K/mm3 (0.00-0.23); BASOPHILS PERCENT AUTO 1 % (0-2); EOSINOPHILS ABSOLUTE AUTO 0.23 K/mm3 (0.00-0.68); EOSINOPHILS PERCENT AUTO 6 % (0-6); Hematocrit 36.1 % (33.0-51.0); Hemoglobin 11.9 g/dL (11.5-16.0); IMMATURE GRAN ABSOLUTE AUTO 0.01 K/mm3 (0.00-0.10); IMMATURE GRAN PERCENT AUTO 0 % (0-1); LYMPHOCYTES ABSOLUTE AUTO 1.63 K/mm3 (0.84-5.20); LYMPHOCYTES PERCENT AUTO 39 % (21-46); MONOCYTES ABSOLUTE AUTO 0.42 K/mm3 (0.16-1.47); MONOCYTES PERCENT AUTO 10 % (4-13); Mean Corpuscular HGB Conc 33.0 g/dL (31.5-36.5); Mean Corpuscular Volume 92 fL (80-100); NEUTROPHILS ABSOLUTE AUTO 1.83 K/mm3 (1.96-9.15); NEUTROPHILS PERCENT AUTO 44 % (41-73); NRBC ABSOLUTE 0.00 K/mm3 (0.00-0.02); NRBC Auto 0.0 /100 WBC (0.0-0.2); Platelet Count 243 K/mm3 (150-400); RDW Coefficient Variation 13.2 % (11.7-14.2); RDW Standard Deviation 44.8 fL (35.1-46.3)
[2025-07-02 15:25] LABS: Alanine Aminotransfer (ALT/SGP 20 U/L (12-78); Albumin, Blood 3.7 g/dL (3.4-5.0); Albumin/Globulin Ratio 1.2 (0.8-1.8); Anion Gap 8 mmol/L (3-11); Aspartate Aminotrans (AST/SGOT 16 U/L (12-37); Bilirubin, Total 0.3 mg/dL (0.1-1.0); Blood Urea Nitrogen 12 mg/dL (8-24); C-REACTIVE PROTEIN, EXT RANGE <0.290 mg/dL (0.000-0.300); CO2, Blood 27 mmol/L (21-32); Calcium, Blood 8.9 mg/dL (8.5-10.1); Chloride, Blood 107 mmol/L (98-108); Creatinine, Blood 0.85 mg/dL (0.40-1.00); Globulin, Blood 3.0 g/dL (2.2-4.0); Glucose, Blood 86 mg/dL (70-99); Potassium, Blood 3.9 mmol/L (3.5-5.5); Sodium, Blood 138 mmol/L (136-145); Total Protein, Blood 6.7 g/dL (6.4-8.2)
== END 2025-07-02 14:39 | disposition home or self-care (01) ==
LOC: ATC 01:34
PROVIDERS: Internal Medicine Infectious Disease
DX: M00.9 Pyogenic arthritis, unspecified (principal); A49.02 Methicillin resistant Staphylococcus aureus infection, unspecified site; Z88.0 Allergy status to penicillin; Z88.1 Allergy status to other antibiotic agents; Z88.2 Allergy status to sulfonamides
CPT/HCPCS: 80053; 82550; 85025; 86140; 96365; J0878

== ENCOUNTER 2025-07-03 02:04 | Day surgery (SDC) | payer OTHER ==
[2025-07-03 14:28] VITALS: BP 128/71
== END 2025-07-03 14:48 | disposition home or self-care (01) ==
LOC: ATC 02:04
DX: M00.9 Pyogenic arthritis, unspecified (principal); A49.02 Methicillin resistant Staphylococcus aureus infection, unspecified site; Z88.0 Allergy status to penicillin; Z88.1 Allergy status to other antibiotic agents; Z88.2 Allergy status to sulfonamides
CPT/HCPCS: 96365; J0878

== ENCOUNTER 2025-07-04 04:12 | Day surgery (SDC) | payer OTHER ==
[2025-07-04 14:40] VITALS: BP 93/70
== END 2025-07-04 14:59 | disposition home or self-care (01) ==
LOC: ATC 04:12
DX: M00.9 Pyogenic arthritis, unspecified (principal); A49.02 Methicillin resistant Staphylococcus aureus infection, unspecified site; Z88.0 Allergy status to penicillin; Z88.1 Allergy status to other antibiotic agents; Z88.2 Allergy status to sulfonamides
CPT/HCPCS: 96365; J0878

== ENCOUNTER 2025-07-05 00:34 | Day surgery (SDC) | payer OTHER ==
[2025-07-05 14:22] VITALS: BP 125/93
== END 2025-07-05 14:56 | disposition home or self-care (01) ==
LOC: ATC 00:34
DX: M00.9 Pyogenic arthritis, unspecified (principal); A49.02 Methicillin resistant Staphylococcus aureus infection, unspecified site
CPT/HCPCS: 96365; J0878